=== PATIENT | male | born 1955 | race Caucasian/White ===

== ENCOUNTER 2016-11-04 22:03 | Emergency (ER) | payer OTHER ==
[~2016-11-04] VITALS: Ht 182.9 cm; Wt 96.0 kg
[~2016-11-04 22:03] MED LIST: PAXIL20 MG PO; SIMVASTATIN5 MG PO; TOPROL XL100 MG PO; ZESTRIL20 MG PO
[2016-11-04 23:53] VITALS: BP 1110/56
== END 2016-11-04 23:54 | disposition home or self-care (01) ==
LOC: EME → EDBD 22:03 → EME 23:54
DX: S00.03XA Contusion of scalp, initial encounter (principal); M25.511 Pain in right shoulder; W18.30XA Fall on same level, unspecified, initial encounter; E78.5 Hyperlipidemia, unspecified; I10 Essential (primary) hypertension; F17.200 Nicotine dependence, unspecified, uncomplicated
CPT/HCPCS: 70450; 73030; 99281; 99284